=== PATIENT | male | born 1980 | race Hispanic/Latino ===

== ENCOUNTER → 2017-06-10 | Emergency (ER) | payer SELFPAY ==
[~2017-06-10] VITALS: Ht 160 cm; Wt 78.9 kg
[~2017-06-10] MED LIST: KEFLEX500 MG PO
[2017-06-10 14:53] VITALS: BP 144/96
== END | disposition home or self-care (01) ==
LOC: EME 14:48
DX: S61.214A Laceration without foreign body of right ring finger without damage to nail, initial encounter (principal); W26.9XXA Contact with unspecified sharp object(s), initial encounter; Y93.G1 Activity, food preparation and clean up; Y92.009 Unspecified place in unspecified non-institutional (private) residence as the place of occurrence of the external cause; Z23 Encounter for immunization
CPT/HCPCS: 99281; 99285; S0020